=== PATIENT | male | born 1990 | race African-American/Black ===

== ENCOUNTER 2023-09-13 21:31 | Emergency (ER) | payer OTHER ==
[~2023-09-13] VITALS: Ht 185.4 cm; Wt 107.0 kg
[2023-09-13 22:13] VITALS: BP 148/80; PULSE 55; RESP 15; TEMP 97.8; O2SAT 99
[2023-09-14] MEDS ORDERED: P20 MT (00:22)
[2023-09-14] MEDS ORDERED: LIDO1ADH7 TP (00:22)
[2023-09-14] MEDS ORDERED: CYCL7.5T25 MT (00:22)
== END 2023-09-14 01:00 | disposition home or self-care (01) ==
LOC: ER 21:31
DX: M54.6 Pain in thoracic spine (principal); I10 Essential (primary) hypertension
CPT/HCPCS: 99281